=== PATIENT | male | born 1945 | race Caucasian/White ===

== ENCOUNTER 2017-02-02 11:32 | Inpatient (IN) | payer MEDICARE ==
[~2017-02-02] VITALS: Ht 182.9 cm; Wt 109.3 kg
[2017-02-02 02:20] VITALS: BP 151/90
[~2017-02-02 11:32] MED LIST: CIPRO 500MG TA500 MG PO
[2017-02-02 12:16] VITALS: BP 154/73
--- OUTSIDE RECORDS SUMMARY | 2017-02-02 12:20 | External Medical Summary Rpt ---
Demographics Preferred Language German Marital Status Unknown Baptism Affiliation Unknown Race Unknown Ethnic Group Unknown Author Author , GIULIANA GIORDANO Address Unknown Phone [email or web address] Immunization Name Date Rout CVX Reac Dose Comm Prov Is Faci e tion ent ider Refu lity Give sed n Td 03- 9 999 Hist H201 No H201 (maría elena 07-10 [facility] lt), 97 al Info adso rmat rbed ion - Sour ce Unsp ecif ied
--- OUTSIDE RECORDS SUMMARY | 2017-02-02 12:20 | External Medical Summary Rpt ---
Author Author [employer] Organization [employer] Address Unknown Phone Unavailable Purpose Continuity of Care Document - through 2016
--- OUTSIDE RECORDS SUMMARY | 2017-02-02 12:20 | External Medical Summary Rpt ---
Demographics Preferred Language Palauan Marital Status Unknown Tenriism Affiliation Unknown Race Unknown Ethnic Group Unknown Author Author , GIULIANA GIORDANO Address Unknown Phone [email or web address] Immunization Name Date Rout CVX Reac Dose Comm Prov Is Faci e tion ent ider Refu lity Give sed n Td 03- 9 999 Hist H201 No H201 (maría elena 07-10 [facility] lt), 97 al Info adso rmat rbed ion - Sour ce Unsp ecif ied
--- OUTSIDE RECORDS SUMMARY | 2017-02-02 12:20 | External Medical Summary Rpt ---
Author Author GIULIANA Address Unknown Phone [email or web address] Purpose Continuity of Care Document - through 2016
--- OUTSIDE RECORDS SUMMARY | 2017-02-02 12:20 | External Medical Summary Rpt ---
Author Author GIULIANA Address Unknown Phone [email or web address] Purpose Continuity of Care Document - through 2016
[2017-02-02 12:56] LABS: HEMOGLOBIN 13.9 g/dL (14.1-18.0)
[2017-02-02 12:57] LABS: LYMPH # 1.4 K/mm3 (0.7-4.5); LYMPH % 10.7 % (10-50)
[2017-02-02 13:16] LABS: NEUTROPHILS 80 % (42-76)
--- NOTE | 2017-02-02 13:43 | HISTORY AND PHYSICAL REPORT ---
Demographics: Admit date: 02/02/17 Chief complaint: Cough/congestion/fever PRIMARY DIAGNOSIS: PNEUMONIA Allergies: Coded Allergies: No Known Allergies (02/02/17) History of present illness: History of present illness: 71-year-old white male with oxygen requiring nocturnal COPD, as well as CHF with systolic failure with ejection fraction 45% and type 2 diabetes who came to my office with cough and congestion with one week of low-grade fevers and lots of sweating. In the office found to be hypoxic with O2 saturation 78% on room air, increasing to 89% with 2 L nasal cannula but found to have crackles and rhonchi in both lower lung skinner and was admitted to hospital for IV therapy, enhanced pulmonary toilet. Past medical history: Family HX Diabetes No CAD No Hypertension Yes Hyperlipidemia No Cancer No TB No Immunization HX DT/Tetanus 1-4 YRS General Angina: No MS: No Hypertension? Yes Hyperlipidemia? No CHF? No COPD? Yes Asthma? No Hernia? No CVA? No Seizures? No Diabetes? No UTI? No Stones? No GB Disease: No Hepatitis? No Cataracts? No Glaucoma? No MRSA? No TB? No Cancer? No Past Surgical HX Previous Surgery?N Current home meds: Active Scripts Ciprofloxacin HCl (Cipro 500MG TAB) 500 MG PO BID 7 Days Prov: 11/05/09 Social Hx: Smoking HX Packs/day < 1 PACK Alcohol Alcohol: No Hx of Drug Use Drug Use? No Patien't marital status is single Patient's support system is fair Review of systems: Constitutional fever, malaise, weakness. Respiratory cough, shortness of breath. Cardiovascular No see HPI, No chest pain, No edema Gastrointestinal/Abdominal No no symptoms reported Genitourinary No: no symptoms reported. Musculoskeletal No: no symptoms reported. Neurological No: see HPI. Exam: Lab data for last 24 hours: Laboratory Tests 02/02/17 1230: Sodium 140, Potassium 4.3, Chloride 96 L, Carbon Dioxide 37 H, BUN 67 H, Creatinine 1.9 H, Estimated Creat Clear 58, Estimated GFR (MDRD) 35, Glucose 150 H, Calcium 10.0, WBC 12.7 H, RBC 4.60, Hgb 13.9 L, Hct 46.5, MCV 101.0 H , RDW 15.2, Plt Count 263, Gran % 85.4 H, Gran # 10.8 H, Total Counted 100, Lymphocytes % 10.7, Monocytes % 3.9, Neutrophils 80 H, Band Neutrophils 1, Lymphocytes (Manual) 11, Lymphocytes # 1.4, Monocytes (Manual) 7, Monocytes # 0.5, Eosinophils # (Manual) 1, Platelet Estimate NORMAL, PUBS MCHC 29.9 L, MCH 30.2 Microbiology 02/02 1230 BLOOD: Anaerobic Blood Culture - RECD 02/02 1230 BLOOD: Aerobic Blood Culture - RECD 02/02 1230 BLOOD: Anaerobic Blood Culture - RECD 02/02 1230 BLOOD: Aerobic Blood Culture - RECD Admission vital signs: 1ST Vital Signs Result Date Time Pulse Ox 86 02/02 1216 B/P 154/73 02/02 1216 O2 Delivery OXYGEN 02/02 121 Temp 98.1 02/02 1216 Pulse 62 02/02 1216 Resp 18 02/02 1216 Additional information: Patient's alert, talkative, cyanotic. Minimal respiratory distress with slight shortness of air when speaking. Lungs have rhonchi crackles in both bases, slightly worse on the right. Heart rate regular. Abdomen protuberant but soft, no edema noted. Able to move all extremities well and cranial nerves are intact. Plan: Problem List 1. Diabetes type 2, controlled 2. COPD with exacerbation 3. Pneumonia 4. Hypoxia Plan: Plan will be to admit to hospital. Standard community-acquired pneumonia protocol. Pulmonary toilet. Watch oxygenation carefully. Watch diabetes carefully with sliding scale insulin. at 1342
[2017-02-02] MEDS ORDERED: LISINOPRIL10 MG PO (14:08)
[2017-02-02] MEDS ORDERED: VERAPAMIL SR 2240 MG PO (14:09)
[2017-02-02] MEDS ORDERED: FUROSEMIDE80 M1 PO (14:09)
[2017-02-02] MEDS ORDERED: AMARYL2 MG PO (14:10)
[2017-02-02] MEDS ORDERED: METOLAZONE5 MG PO (14:10)
[2017-02-02] MEDS ORDERED: PRAVASTATIN SOD80 M1 PO (14:11)
[2017-02-02] MEDS ORDERED: ALLOPURINOL300 M1 PO (14:12)
[2017-02-02] MEDS ORDERED: JANUVIA100 MG PO (14:13)
[2017-02-02] MEDS ORDERED: TOUJEO300 U/ML SC ×2 (14:14→14:20)
[2017-02-02] MEDS ORDERED: TYLENOL ES500 MG PO (14:19)
[2017-02-02] MEDS ORDERED: ACETAMINOPHEN-H1 TA2 PO (14:21)
[2017-02-02 14:29] VITALS: BP 158/62
[2017-02-02 14:32] LABS: CORONAVIRUS 229E NOT DETECTED (NOT DETECTE); CORONAVIRUS HKU 1 NOT DETECTED (NOT DETECTE); CORONAVIRUS NL63 NOT DETECTED (NOT DETECTE); CORONAVIRUS OC43 NOT DETECTED (NOT DETECTE); RHINOVIRUS/ENTEROVIRUS NOT DETECTED (NOT DETECTE)
[2017-02-02 16:10] VITALS: BP 152/66
--- NOTE | 2017-02-02 17:28 | RADIOLOGY REPORT PS360 ---
CHEST(2 VIEWS-NOT PORTABLE) Ordering physician: Elbert Walker MD Age: 71 years Male INDICATION: chest symptomsR/O PNEUMONIA PROCEDURE: CHEST(2 VIEWS-NOT PORTABLE) FINDINGS: 11/05/2009 and July 2009. There is subtle infiltrate seen throughout the lung skinner imposed on chronic changes. Overall this infiltrate is slightly more evident throughout the right lung. Seems to be primarily interstitial infiltrate with perhaps early early alveolar component seen at the lung bases bilaterally. Most evident area of early consolidation is seen at the medial left base more so than right. The heart is enlarged. Mild vascular engorgement.. Cannot exclude mild fluid overload or early CHF. Hilar and mediastinal structures appear stable when compared to previous studies. Chest wall unremarkable. T-spine intact. IMPRESSION ----- 1. Diffuse bilateral infiltrates which becomes most evident towards the lung bases. 2.Additional bibasilar infiltrate, with early consolidation most evident at medial left base partially obscuring left hemidiaphragm. 3. Cardiomegaly. Slight additional Vascular engorgement question subtle vascular congestion or fluid overload. 4. Follow-up in
[2017-02-02 20:21] VITALS: BP 151/90
[2017-02-03] VITALS (9 sets, daily range): BP systolic 115–170; BP diastolic 49–82
[2017-02-03 06:53] LABS: HEMOGLOBIN 13.2 g/dL (14.1-18.0); LYMPH # 2.1 K/mm3 (0.7-4.5); LYMPH % 20.8 % (10-50)
--- NOTE | 2017-02-03 07:10 | PHARMACY CLINIC NOTE ---
Patient Demographics Patient Demographics Admission date: 02/02/17 Date: 02/03/17 Time: 0709 Allergies Coded Allergies: guaifenesin (From MUCINEX) (Mild, RASH ON BLE; PT STATES ROBITUSSIN IS FINE ) HEIGHT- FT: 6 IN: 0.00 K.273 VTE General Information Labs: Laboratory Tests 02/03 02/02 0640 1230 Hematology Hgb (14.1 - 18.0 g/dL) 13.2 L 13.9 L Hct (42.0 - 52.0 %) 44.2 46.5 Plt Count (142 - 424 K/mm3) 277 263 Disclaimer The following section includes nursing documentation that has been pulled in for pharmacy review. Patient's VTE score: 3 Patient's VTE Risk: LOW RISK Clinical trial participant? No VTE prophylaxis NQF [id number] VTE prophylaxis ordered? Yes Type of prophylaxis/treatment: YAMILEX at 0709
--- NOTE | 2017-02-03 08:47 | ACUTE CARE PROGRESS NOTE (QUA) ---
Progress Notes Subjective Date 02/03/17 Time 0745 Note Patient reports he feels better this morning. He was able to provide a sputum sample yesterday which is pending. He reports some improvement of shortness of breath, as well. Alert and oriented 3. Rate and rhythm regular. 1/6 holosystolic murmur. No lower extremity edema. Pulses 2+ bilaterally. Lungs sounds with scattered wheezes throughout and rhonchi/crackles RIGHT lower lobe, airflow improved. Abdomen soft and nontender Patient/family reports: feeling better Nursing reports: no complaints Objective Findings Last VS-Temp:98 B/P:170/78 Pulse:78 Resp:22 SaO2:90 OXYGEN Last weight lbs:245 oz:5 K.273 Method:Bed Scales Reviewed: medications, vital signs, lab results, radiology report Assessment/Plan Problem List 1. Diabetes type 2, controlled Assessment/Plan: Fingerstick blood sugars with sliding-scale coverage. 2. COPD with exacerbation Assessment/Plan: Continue IV antibiotics and DuoNeb's. Sputum culture pending. 3. Pneumonia Assessment/Plan: See above. 4. Hypoxia Assessment/Plan: Improving. Will obtain room air oxygen saturation today and evaluate need for continuous home oxygen. Patient condition Improving Plan: continue current care This inpt stay is expected to cross 2 MNs from start of care Yes at 0851
[2017-02-04] VITALS (7 sets, daily range): BP systolic 146–177; BP diastolic 64–85
--- NOTE | 2017-02-04 07:19 | ACUTE CARE PROGRESS NOTE (QUA) ---
Progress Notes Subjective Date 02/04/17 Time 0718 Note Overall patient feels better. Vital sign parameters have improved. Room air pulse oximetry readings during the day yesterday were in the low 90 percent range. Patient's lungs are clear, with continued rhonchi but better air entry. Heart rate regular. No edema noted. Objective Findings Last VS-Temp:98.5 B/P:156/79 Pulse:64 Resp:18 SaO2:92 OXYGEN Last weight lbs:245 oz:5 K.273 Method:Bed Scales Assessment/Plan Problem List 1. Diabetes type 2, controlled 2. COPD with exacerbation 3. Pneumonia 4. Hypoxia Patient condition Improving, await culture results and sensitivities. If these return this afternoon would consider discharge today. Plan: continue current care This inpt stay is expected to cross 2 MNs from start of care Yes at 0719
[2017-02-05 00:19] VITALS: BP 149/65
[2017-02-05 04:12] VITALS: BP 145/72
[2017-02-05 07:30] VITALS: BP 152/72
[2017-02-05] MEDS ORDERED: OXYGEN2 IH (08:51)
[2017-02-05] MEDS ORDERED: ZITHROMAX Z PA250 MG PO (08:52)
[2017-02-05] MEDS ORDERED: CEFDINIR 300MG300 MG PO (08:52)
--- NOTE | 2017-02-05 09:04 | ACUTE CARE PROGRESS NOTE (QUA) ---
Progress Notes Subjective Date 02/05/17 Time 0800 Note Patient is sitting up in chair states he feels well and is ready to go home. Continues to have faint scattered wheezes and crackles in bilateral bases. Rate and rhythm regular. No lower extremity edema. Pulses 2+ bilaterally abdomen soft and nontender Patient/family reports: feeling better Nursing reports: no complaints Objective Findings Last VS-Temp:98.0 B/P:152/72 Pulse:64 Resp:20 SaO2:91 OXYGEN Last weight lbs:241 oz:0 K.316 Method:Bed Scales Reviewed: medications, vital signs, lab results Assessment/Plan Problem List 1. Diabetes type 2, controlled 2. COPD with exacerbation 3. Pneumonia 4. Hypoxia Patient condition Improving, Stable Plan: initiate discharge plan This inpt stay is expected to cross 2 MNs from start of care Yes Comments: Sputum culture showed no growth. Saturations 85% on room air. We will send home with continuous oxygen. Follow-up in office on Thursday. Prescriptions for Zithromax and Ceftin ear stent at 0904
--- NOTE | 2017-02-05 09:11 | DISCHARGE SUMMARY STANDARD ---
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 In the office found to be hypoxic with O2 saturation 78% on room air, increasing to 89% with 2 L nasal cannula but found to have crackles and rhonchi in both lower lung skinner and was admitted to hospital for IV therapy, enhanced pulmonary toilet. Hospital Course Hospital Course: Patient was admitted to acute care for IV antibiotics. Chest x-ray was obtained which showed bilateral basilar infiltrates. He was given infusions of Zithromax and Rocephin. He had significant improvement of shortness of breath and cough. Sputum culture was obtained which showed normal respiratory neville. He is tolerating oral intake well with significant improvement of symptoms. Room air saturations were 85 percent yesterday. Will arrange for portable oxygen for continuous use until seen in follow-up in 4 days. Discharge home on Zithromax and Cefdinir. See medication reconciliation for complete list. Continue to hold metolazone. Will re-evaluate at FU pending labs on Thursday. Complete metabolic panel prior to follow-up with Dr. Walker in 4 days. Instructed to wear continuous oxygen until seen in the office. Will re- evaluate saturations at that time. Discharge diagnoses Problem List 1. Diabetes type 2, controlled 2. COPD with exacerbation 3. Pneumonia 4. Hypoxia Medications Medications: Discharge meds are as noted. Follow up Follow up in office in: 4 DAYS with: Elbert Walker MD at 0911
[2017-02-05 09:45] VITALS: BP 152/72
== END 2017-02-05 10:10 | disposition home or self-care (01) | DRG 190 ==
LOC: 2ND 11:32
PROVIDERS: Internal Medicine Adolescent Medicine
DX: J44.1 Chronic obstructive pulmonary disease with (acute) exacerbation (principal); J18.9 Pneumonia, unspecified organism; I50.20 Unspecified systolic (congestive) heart failure; Z99.81 Dependence on supplemental oxygen; I10 Essential (primary) hypertension; E11.9 Type 2 diabetes mellitus without complications
CPT/HCPCS: J0456

== ENCOUNTER → 2017-02-08 | Outpatient (CLI) | payer MEDICARE ==
[~2017-02-08] MED LIST changes: +ACETAMINOPHEN-H1 TA2 PO; +ALLOPURINOL300 M1 PO; +AMARYL2 MG PO; +CEFDINIR 300MG300 MG PO; +FUROSEMIDE80 M1 PO; +JANUVIA100 MG PO; +LISINOPRIL10 MG PO; +METOLAZONE5 MG PO; +OXYGEN2 IH; +PRAVASTATIN SOD80 M1 PO; +TOUJEO300 U/ML SC; +TYLENOL ES500 MG PO; +VERAPAMIL SR 2240 MG PO; +ZITHROMAX Z PA250 MG PO
[2017-02-08 10:04] LABS: LYMPH # 1.4 K/mm3 (0.7-4.5); LYMPH % 31.7 % (10-50)
[2017-02-08 10:05] LABS: HEMOGLOBIN 14.7 g/dL (14.1-18.0)
[2017-02-08 10:15] LABS: BUN 48 mg/dL (7-18)
[2017-02-08 10:18] LABS: GFR (ESTIMATED) 38 ML/MIN (>60)
== END ==
LOC: LAB 09:54
PROVIDERS: Internal Medicine Adolescent Medicine
DX: J18.9 Pneumonia, unspecified organism (principal)